=== PATIENT | female | born 2000 | race Caucasian/White ===

== ENCOUNTER 2020-06-19 16:16 | Emergency (ER) | payer BC, SELFPAY ==
[2020-06-19 16:52] VITALS: BP 119/73; PULSE 73; RESP 18; TEMP 36.7; O2SAT 100
--- NOTE | 2020-06-19 17:43 | ED.GENADULT ---
HPI - General Adult General Chief complaint: Skin/Abscess/Foreign Body <Mook Gongora PA-C - Last Filed: 06/19/20 18:25> Stated complaint: wound on forehead <Mook Gongora PA-C - Last Filed: 06/19/20 18:25> Time Seen by Provider: 06/19/20 17:36 <Mook Gongora PA-C - Last Filed: 06/19/20 18:25> Source: patient <Mook Gongora PA-C - Last Filed: 06/19/20 18:25> Mode of arrival: ambulatory <Mook Gongora PA-C - Last Filed: 06/19/20 18:25> Limitations: no limitations <Mook Gongora PA-C - Last Filed: 06/19/20 18:25> History of Present Illness HPI narrative: Patient is a 19-year-old female who presents with wound to the forehead that is been present for the last several days was seen yesterday started on Augmentin noticed no improvement patient denies fever chills nausea vomiting or immunocompromise and is otherwise resting comfortably in the room upon arrival in no distress <Mook Gongora PA-C - Last Filed: 06/19/20 18:25> Related Data Home medications: Home Medications Medication Instructions Recorded Confirmed amoxicillin-pot clavulanate tablet 06/19/20 fluoxetine mg 06/19/20 montelukast mg 06/19/20 omeprazole 06/19/20 ondansetron HCl 06/19/20 promethazine 06/19/20 <Mook Gongora PA-C - Last Filed: 06/19/20 18:25> Allergies/adverse reactions: Allergies Allergy/AdvReac Type Severity Reaction Status Date / Time No Known Allergies Allergy Mild Verified 06/19/20 16:58 <Mook Gongora PA-C - Last Filed: 06/19/20 18:25> Review of Systems Review of Systems: All systems reviewed & are unremarkable except as noted in HPI and below <Mook Gongora PA-C - Last Filed: 06/19/20 18:25> PMFSH Past Medical History Medical History: Medical History (Updated 06/19/20 @ 18:24 by Mook Gongora PA-C) Asthma <Mook Gongora PA-C - Last Filed: 06/19/20 18:25> Social History Social History: Social History (Updated 06/19/20 @ 17:44 by Mook Gongora PA-C) Smoking status: Never smoker Tobacco type: e-cigarettes/vaping <Mook Gongora PA-C - Last Filed: 06/19/20 18:25> Exam Narrative: Exam Narrative: GENERAL: Well-appearing, well-nourished, and in no acute distress. HEAD: Normocephalic, atraumatic. EYES: PERRLA and EOMI. ENT: Nares clear, no rhinorrhea or epistaxis. Mucous membranes moist. EXTREMITIES: Normal range of motion. No edema. SKIN: Warm, dry, consistent with abscess NEURO: No focal deficits. Alert and oriented x3. PSYCH: Normal mood and affect. Patient with 2 cm red tender swollen fluctuant lesion to the left forehead along the hairline <Mook Gongora PA-C - Last Filed: 06/19/20 18:25> Course Course Emergency Course: Patient had I&D of the wound in the emergency department as well as wound culture obtained felt appropriate for outpatient reevaluation given reasons to return felt appropriate for outpatient reevaluation <Mook Gongora PA-C - Last Filed: 06/19/20 18:25> Vital Signs Vital signs: Vital Signs Temperature 36.7 C 06/19/20 16:52 Pulse Rate 73 06/19/20 16:52 Respiratory Rate 18 06/19/20 16:52 Blood Pressure 119/73 06/19/20 16:52 Pulse Oximetry 100 06/19/20 16:52 Temperature 36.7 C 06/19/20 16:52 Pulse Rate 71 06/19/20 18:36 Respiratory Rate 18 06/19/20 18:36 Blood Pressure 129/109 H 06/19/20 18:36 Pulse Oximetry 100 06/19/20 18:36 <Mook Gongora PA-C - Last Filed: 06/19/20 18:25> Vital Signs Temperature 36.7 C 06/19/20 16:52 Pulse Rate 73 06/19/20 16:52 Respiratory Rate 18 06/19/20 16:52 Blood Pressure 119/73 06/19/20 16:52 Pulse Oximetry 100 06/19/20 16:52 Temperature 36.7 C 06/19/20 16:52 Pulse Rate 71 06/19/20 18:36 Respiratory Rate 18 06/19/20 18:36 Blood Pressure 129/109 H 06/19/20 18:36 Pulse Oximetry 100 06/19/20 18:36 <Natasha Salamanca MD - [facility]
[2020-06-19 18:36] VITALS: BP 129/109; PULSE 71; RESP 18; O2SAT 100
== END 2020-06-19 18:38 | disposition home or self-care (01) ==
PROVIDERS: Emergency Provider Emergency Medicine; PCP Physician Assistant
DX: L02.01 Cutaneous abscess of face (principal)
CPT/HCPCS: 10060; 87070; 87075; 87147; 87186; 87205; 99283

== ENCOUNTER → 2020-09-24 11:43 | Outpatient (CLI) | payer BC, SELFPAY ==
--- NOTE | ~2020-09-24 | XR_ITS ---
EXAMINATION: XR knee RT 3V DATE: 09/24/2020 12:05 INDICATION: Right knee pain and popping. TECHNIQUE: 3 views of right knee were obtained. COMPARISON: None. FINDINGS: Bone alignment is normal. No fracture. Joint spaces are well maintained. There is no knee j oint effusion. IMPRESSION: 1. Normal right knee. Reviewed, dictated and finalized at location B. T ROCK TAPER HELPER IMPRESSION: 1. Normal right knee.
== END ==
PROVIDERS: PCP Physician Assistant; Visit Provider Physician Assistant
DX: M25.561 Pain in right knee (principal); G89.29 Other chronic pain
CPT/HCPCS: 73562

== ENCOUNTER 2020-10-04 09:25 | Emergency (ER) | payer BC, SELFPAY ==
[2020-10-04] VITALS (9 sets, daily range): BP systolic 105–147; BP diastolic 61–105; PULSE 63–99; RESP 11–29; TEMP 36.7; O2SAT 98–100
--- NOTE | ~2020-10-04 | XR_ITS ---
EXAMINATION: XR chest 2V DATE: 10/04/2020 10:09 INDICATION: Right-sided chest pain radiating to the back TECHNIQUE: PA and lateral views of the chest were obtained. COMPARISON: Chest radiograph dated 12/18/2008 FINDINGS: The lungs remain clear with no focal airspace opacities, pulmonary edema, pleural effusion or pneumot horax. The cardiomediastinal silhouette is normal. Mild thoracic dextrocurvature. IMPRESSION: 1. No acute cardiopulmonary disease. Reviewed, dictated and finalized at location B. ETIC ASSEMBLER
--- NOTE | 2020-10-04 09:29 | ED.CHESTPAIN ---
HPI - Chest Pain General Chief Complaint: Chest Pain Stated Complaint: right sided chest pain Time Seen by Provider: 10/04/20 09:28 History of Present Illness HPI narrative: 20 yo female w/ h/o BPD presents to the ED for chest pain. Right sided chest pain since last night. Radiates over shoulder and into the upper back. Intermittent. No exacerbating or alleviating factors. Lasts a few minutes each time. No pain at the moment. Tried a heating pad without relief. No cough, SOB, fever, congestion. Related Data Home Medications Medication Instructions Recorded Confirmed omeprazole 06/19/20 cariprazine [Vraylar] mg 10/04/20 Allergies Allergy/AdvReac Type Severity Reaction Status Date / Time No Known Allergies Allergy Mild Verified 10/04/20 10:03 Review of Systems Review of Systems: All systems reviewed & are unremarkable except as noted in HPI and below Constitutional: Constitutional: Denies chills and Denies fever(s) Cardiovascular: Cardiovascular: Reports chest pain and Denies radiating jaw, neck or arm pain Respiratory: Respiratory: Denies chest congestion, Denies cough and Denies dyspnea Gastrointestinal: Gastrointestinal: Denies abdominal pain and Denies nausea Genitourinary: Genitourinary: Denies dysuria Musculoskeletal: Musculoskeletal: Reports back pain Neurologic: Denies dizziness and Denies weakness Psychiatric: Psychiatric: Reports anxiety and Reports depression PMFSH Past Medical History Medical History Asthma Social History Social History Smoking status: Never smoker Tobacco type: e-cigarettes/vaping Gender identity (if verbalized by the patient): Female Exam Const: General: healthy appearing, no acute distress and alert Nutritional Appearance: well nourished Orientation/consciousness: patient oriented x3 HENMT: Head: normal to inspection Neck: Neck: normal visual inspection Chest: Chest palpation & inspection: no tenderness Resp: Effort & Inspection: normal respiratory effort Auscultation: clear to auscultation bilaterally, no rales, no rhonchi and no wheezes Cardio: Jugular venous distension: no JVD Rate: regular rate Rhythm: regular rhythm Heart sounds: no murmurs GI: Inspection: non-distended GI Palp: Yes Soft to palpation and No Tenderness to palpation present (GI) Skin: General skin exam: normal color Neuro: General: patient oriented x3 and moves all extremities Speech: normal speech Extrem: General: no edema Psych: Appearance: well kempt Affect: normal affect Course Vital Signs Vital signs: Vital Signs Temperature 36.7 C 10/04/20 09:45 Pulse Rate 99 10/04/20 09:45 Respiratory Rate 18 10/04/20 09:45 Blood Pressure 147/105 H 10/04/20 09:45 Pulse Oximetry 98 10/04/20 09:45 Temperature 36.7 C 10/04/20 09:45 Pulse Rate 63 10/04/20 11:15 Respiratory Rate 18 10/04/20 11:15 Blood Pressure 119/67 10/04/20 11:15 Pulse Oximetry 100 10/04/20 11:15 MDM - Chest Pain MDM Narrative Medical decision making narrative: Pain seems to be muscular in nature. Likely subclavius given distribution and difficultly of reproducing on exam. Anxiety likely contributing as well. Differential Diagnosis Differential diagnosis: Likely atypical chest pain, costochondritis and other (subclavius strain) Lab Data Attestation: I reviewed the patient's lab results. Result diagrams: 10/04/20 09:53 10/04/20 09:53 Labs: Lab Results 10/04/20 10/04/20 Range/Units 09:53 09:53 WBC 6.3 (4.5-10.0) K/mm3 RBC 4.31 (4.2-5.4) M/mm3 Hgb 12.5 (12.0-15.0) g/dL Hct 38.0 (37.0-47.0) % MCV 88.2 (80-100) fl MCH 29.0 (26-34) pg MCHC 32.9 (32-36) g/dl RDW 13.4 (11.5-14.5) % Plt Count 228 (150-375) k/mm3 MPV 10.9 H (7.4-10.4) fl Immature Gran % (Auto) 0.3 (0-0.5) % Ne
--- NOTE | 2020-10-04 09:49 | ECG_ITS ---
Measurements Intervals Leslie Rate: 82 P: 42 WV: 140 QRS: 33 QRSD: 101 T: 5 QT: 348 QTc: 408 Interpretive Statements SINUS RHYTHM DELAYED PRECORDIAL R/S TRANSITION BORDERLINE ST-T WAVE ABNORMALITY- INFERIOR LEADS BASELINE ARTIFACT- I, II, III, AVR, V4 BORDERLINE ECG Electronically Signed On 10-04-2020 11:42:42 [facility] by Danial Adams D.O.
[2020-10-04 09:58] LABS: Basophils Percent Auto 0.3 % (0.2-1.2); Eosinophils Absolute Auto 0.3 K/mm3 (0-0.3); Eosinophils Percent Auto 4.6 % (0-4.4); Hemoglobin 12.5 g/dL (12.0-15.0); Immature Granulocyte Absolute 0.02 K/mm3 (0.00-0.031); Immature Granulocyte Percent A 0.3 % (0-0.5); Lymphocytes Absolute Auto 2.15 K/mm3 (0.9-3.2); Lymphocytes Percent Auto 34.2 % (18.3-44.2); Mean Corpuscular HGB Conc 32.9 g/dl (32-36); Mean Corpuscular Volume 88.2 fl (80-100); Mean Platelet Volume 10.9 fl (7.4-10.4); Monocytes Absolute Auto 0.5 K/mm3 (0.1-0.6); Monocytes Percent Auto 7.5 % (2.6-8.5); Neutrophils Absolute Auto 3.3 K/mm3 (1.3-6.7); Neutrophils Percent Auto 53.1 % (45.5-73.1); Platelet Count Result 228 k/mm3 (150-375); Red Blood Count 4.31 M/mm3 (4.2-5.4); Red Cell Distribution Width 13.4 % (11.5-14.5); White Blood Count 6.3 K/mm3 (4.5-10.0)
[2020-10-04] MEDS: KETOROLAC 30 MG/ML VIAL (*BKC) IV PUSH (10:05)
[2020-10-04 11:07] LABS: Alanine Aminotransferase 17 U/L (4-35); Alkaline Phosphatase 52 U/L (38-126); Anion Gap 4 mmol/L (8-16); Aspartate Amino Transferase 28 U/L (14-36); Bilirubin,Total 0.4 mg/dL (0.2-1.3); Blood Urea Nitrogen 14 mg/dL (7-17); Calcium 8.9 mg/dL (8.4-10.2); Carbon Dioxide 29 mmol/L (22-30); Chloride 105 mmol/L (98-107); Estimated CRCL calculation 115 ml/min; Estimated Glomerular Filt Rate > 60; Glucose 92 mg/dL (65-105); Potassium 3.7 mmol/L (3.4-5.0); Sodium 138 mmol/L (137-145)
[2020-10-04 11:19] LABS: Troponin I < 0.012 ng/mL (0.000-0.034)
== END 2020-10-04 12:30 | disposition home or self-care (01) ==
PROVIDERS: Emergency Provider Emergency Medicine; Family Provider Pediatrics; PCP Physician Assistant
DX: R07.89 Other chest pain (principal); J45.909 Unspecified asthma, uncomplicated; F17.290 Nicotine dependence, other tobacco product, uncomplicated; R94.31 Abnormal electrocardiogram [ECG] [EKG]
CPT/HCPCS: 36415; 71046; 80053; 84484; 85025; 93005; 96374; 99284; J1885

== ENCOUNTER 2021-02-19 12:33 | Emergency (ER) | payer BC, SELFPAY ==
[2021-02-19 12:47] VITALS: BP 119/70; PULSE 111; RESP 16; TEMP 37.1; O2SAT 99
--- NOTE | 2021-02-19 13:37 | ED.GENADULT ---
HPI - General Adult General Chief complaint: Upper Respiratory Infection Stated complaint: sinus pressure/nasal congesiton Time Seen by Provider: 02/19/21 13:37 Source: patient and RN notes reviewed Mode of arrival: ambulatory Limitations: no limitations History of Present Illness HPI narrative: 20-year-old female presents with complaints of upper respiratory infection, facial and congestion and pressure, and sore throat for 1 day. Payton reports increasing symptoms throughout the night. Claritin and Advil without relief. No facial swelling. Intermittent cough without chest congestion. Nasal congestion and rhinorrhea. ?Sore throat. ?Pain is bilateral. ?Hurts to swallow. ?No high fevers, drooling, neck or throat swelling. ?No voice change. ?No nausea, vomiting, or abdominal pain. ?Tolerating liquids well. Denies dyspnea, difficulty swallowing, jaw pain, dental pain, foreign body sensation, and rash. ?No chest pain or shortness of breath. LMP 2 months ago due to control. Remains active. The patient reports she was diagnosed with COVID-25 August 2020. The patient reports she received 2 [employer] COVID-19 vaccines. The patient reports she is not waiting for the results of a COVID-19lab test.? The patient reports she does not have chills, weakness, or fatigue.? The patient reports she does not have a new or worsening cough. The patient reports she does not have any loss of taste or smell and diarrhea. Denies recent traveling.? Denies concerns for COVID-19 or exposures.? At this time, the patient is not suspected of having COVID-19. ? Some parts of this dictation were generated by voice recognition software and may contain typographical and/or grammatical inaccuracies. Related Data Home Medications Medication Instructions Recorded Confirmed omeprazole 40 mg PO DAILY 06/19/20 02/19/21 cariprazine [Vraylar] 3 mg PO DAILY 10/04/20 02/19/21 norethindrone-e.estradiol-iron 1 tablet PO DAILY 02/19/21 02/19/21 [Blisovi 24 Fe] ondansetron HCl 4 mg PO Q8H PRN 02/19/21 02/19/21 Allergies Allergy/AdvReac Type Severity Reaction Status Date / Time No Known Allergies Allergy Mild Verified 02/19/21 12:54 Review of Systems Review of Systems: Narrative: CONSTITUTIONAL: Denies fever, chills, sweats. EYES: Denies visual changes, redness, discharge. ENT: Complains of rhinorrhea, congestion, facial congestion and pressure, sore throat. Denies otalgia. CARDIOVASCULAR: Denies chest pain, palpitations, edema. RESPIRATORY: Denies dyspnea, wheezing. Complaints of dry cough. GASTROINTESTINAL: Denies abdominal pain, nausea, vomiting, diarrhea. GENITOURINARY: Denies dysuria, hematuria, abnormal discharge SKIN: Denies rash or itching. MUSCULOSKELETAL: Denies acute back pain, joint pain, or myalgia. NEUROLOGIC: Denies numbness or focal weakness. PSYCHIATRIC: Denies anxiety or depression. All other systems reviewed & are unremarkable except as noted in HPI and below. [facility] Past Medical History Medical History (Updated 02/20/21 @ 00:01 by Ad Whipple) Asthma COVID-19 Hypoglycemia Migraine Nausea Intermittent Surgical History Surgical History (Updated 02/19/21 @ 14:00 by REJI Lu) History of esophagogastroduodenoscopy (EGD) History of tonsillectomy Family History Family History (Updated 02/19/21 @ 13:54 by REJI Lu) Father , Suicide Depression Mother Hypertension Social History Social History (Updated 02/19/21 @ 13:55 by REJI Lu) Smoking status: Current every day smoker Tobacco type: e-cigarettes/vaping Second hand tobacco smoke exposure: No Alcohol intake: current Substance use: never Substance use type: does not use Living arrangements: with family Occupation/Education: occupation Gender identity (if verbalized by the patient): Female Sexual Orientation (if Verbalized by the Patient): Straight or Heterosexual Comments At time o
== END 2021-02-19 14:08 | disposition home or self-care (01) ==
PROVIDERS: Emergency Provider Nurse Practitioner Family; PCP Physician Assistant
DX: J06.9 Acute upper respiratory infection, unspecified (principal); F17.200 Nicotine dependence, unspecified, uncomplicated; J45.909 Unspecified asthma, uncomplicated; Z86.16 Personal history of COVID-19
CPT/HCPCS: 99213; G0463

== ENCOUNTER → 2022-03-05 08:34 | Outpatient (CLI) | payer BC, SELFPAY ==
--- NOTE | ~2022-03-05 | XR_ITS ---
EXAMINATION: XR foot LT min 3V DATE: 03/05/2022 08:51 INDICATION: Left foot pain TECHNIQUE: Dorsoplantar, lateral, and 2 oblique views of the left foot were obtained. COMPARISON: None. FINDINGS: There is no fracture, dislocation, or subluxation. The bones, soft tissues, and joint space s are normal. IMPRESSION: 1. No acute osseous abnormality. Reviewed, dictated and finalized at location A.
== END ==
PROVIDERS: PCP Physician Assistant; Visit Provider Physician Assistant
DX: M79.672 Pain in left foot (principal)
CPT/HCPCS: 73630

== ENCOUNTER 2022-03-12 16:15 | Emergency (ER) | payer BC, SELFPAY | END 2022-03-12 16:16 | disposition left against medical advice (07) | PROVIDERS: Emergency Provider Registered Nurse | DX: Z53.21 Procedure and treatment not carried out due to patient leaving prior to being seen by health care provider (principal) | CPT/HCPCS: 99199 ==

== ENCOUNTER 2024-03-16 11:30 | Outpatient (CLI) | payer OTHER, SELFPAY ==
--- NOTE | ~2024-03-16 | XR_ITS ---
AP view of the pelvis and AP and lateral views of the left hip Clinical history: Pain Findings: No acute fracture or dislocation is seen. Osseous alignment is anatomic. Bilateral hip and SI joint spaces are preserved. Soft tissues are unremarkable. Impression: No significant abnormality is seen. Reviewed, dictated and finalized at location . Impression: No significant abnormality is seen.
== END 2024-03-16 11:31 ==
PROVIDERS: PCP Nurse Practitioner Family; Visit Provider Nurse Practitioner Family
DX: M25.552 Pain in left hip (principal)
CPT/HCPCS: 73502

== ENCOUNTER 2025-02-02 17:39 | Emergency (ER) | payer BC, SELFPAY ==
--- NOTE | ~2025-02-02 | XR_ITS ---
XR ribs RT 2V Ordering provider: Marcus Smith APRN History: . right anterior rib pain- pain with cough, no injury 1 week . Comparison: None. FINDINGS: BONES: No acute right rib fracture or fracture of the visualized osseous structures. LUNGS: No effusions or infiltrates. No pneumothorax. SOFT TISSUES: Normal. IMPRESSION: No right rib fracture. Reviewed, dictated and finalized at location A. IMPRESSION: No right rib fracture.
[2025-02-02 17:45] VITALS: BP 130/82; PULSE 81; RESP 18; TEMP 36.8; O2SAT 100
--- NOTE | 2025-02-02 17:50 | ED.URI ---
HPI - URI/Sore Throat General Chief Complaint: Upper Respiratory Infection Stated Complaint: Rib Pain Time Seen by Provider: 02/02/25 17:50 Source: patient Mode of arrival: ambulatory Limitations: no limitations History of Present Illness HPI Narrative: Payton is a 24-year-old female patient presenting to the clinic today with complaints of right sided anterior rib pain x 1 week. She denies any known injury but states she is a very violent cough for and is concerned that she may have fractured or bruised a rib. States she is having pain to the right anterior lower rib chest below the right breast. Pain with coughing, taking deep breaths, and movement. MD elicited complaint: sore throat and nasal congestion Related Data Home Medications ?Medication ?Instructions ?Recorded ?Confirmed ?Last Taken ?Type nortriptyline 10 mg capsule mg 02/02/25 Unknown History Allergies Allergy/AdvReac Type Severity Reaction Status Date / Time No Known Allergies Allergy Mild Verified 02/02/25 17:46 Review of Systems Review of Systems: Pertinent positives per HPI. Patient denies any fever, chills, rash, headache, visual changes, dizziness,shortness of breath, chest pain, palpitations, nausea, vomiting, diarrhea, constipation, abdominal pain, or any urinary issues. [facility] Past Medical History Medical History Nausea Intermittent Migraine COVID-19 Hypoglycemia Asthma Surgical History Surgical History History of esophagogastroduodenoscopy (EGD) History of tonsillectomy Family History Family History Father , Suicide Depression Mother Hypertension Social History Social History Smoking status: Current every day smoker Tobacco type: e-cigarettes/vaping Second hand tobacco smoke exposure: No Alcohol intake: current Substance use: never Substance use type: does not use Do You Feel Safe in your Home?: Yes Lack of Transportation: No Lack of Food: Never True Current Housing: I Have Housing Concerned About Future Housing: No Difficulty Paying Gas/Electric Bills: No Difficulty Paying for Meds: No Currently Unemployed: No Education: High School Diploma/GED Difficulty w/ Childcare or Family Care: No Living arrangements: with family Occupation/Education: occupation Gender identity (if verbalized by the patient): Female Sexual Orientation (if Verbalized by the Patient): Straight or Heterosexual Comments At the time of my signature, I reviewed and agree with the nursing past medical, surgical, social, and family history. There is no relevant family history pertinent to the patient complaint. Exam Narrative: General: Well-developed, well nourished, in no apparent distress Head: Normocephalic, atraumatic Eyes: Pupils equally round and reactive to light bilaterally, EOM intact, sclera and conjunctive clear, no discharge, lids normal Ears: TMs intact and clear, ear canals clear, no drainage, grossly hearing normal. Nose: Nares patent, no discharge, no inflammation, no sinus tenderness. Mouth: Oral pharynx without lesions or masses, good dentition, MMM. Neck: Supple, trachea midline, no enlargement of anterior or posterior cervical nodes, no thyroid masses or goiter palpable. Chest wall: Right anterior lower rib pain, tender to palpation, no bruising or swelling noted. Even rise and fall of the chest wall with respirations Cardio: Regular rate and rhythm, s1 and s2 normal, no murmur appreciated. Resp: Clear to auscultation bilaterally, no rhonchi, rales, wheezing or rubs Course Course Emergency Course: Portions of this record may have been created with voice recognition software. Level of Care: Express Care Visit Vital Signs Vital signs: Vital Signs Temperature 36.8 C 02/02/25 17:45 Pulse Rate 81 02/02/25 17:45 Respiratory Rate 18 02/02/25 17:45 Blood Pressure 130/82 02/02/25 17:45 Pulse Oximetry 100 02/02/25 17:45 Oxygen Delivery Room Air 02/02/25 17:45 Temperature 36.8 C 02/02/25 17:45 Pulse Rate 81 02/02/25 17:45 Respiratory Rate 18 02/02/25 17:45 Blood Pressure 130/82 02/02/25 17:45 Pulse Oximetry 100 02/02/25 17:45 Oxygen Delivery Room Air 02/02/25 17:45 Vital signs reviewed MDM - URI/Sore Throat MDM Narrative Medical decision making narrative: At the time of visit patient is resting comfortably on the exam table. Patient appears to be nontoxic. Diagnostics: Right rib x-ray was performed and was negative for any fracture, pneumonia, or pneumothorax. Plan: I suspect patient has right rib pain/costochondritis. Recommend taking ibuprofen 3 times daily. Splinting the area when coughing and taking deep breaths. Supportive measures were discussed with the patient and they voiced understanding discharge instructions and agrees to treatment plan. Return precautions reviewed Differential Diagnosis Differential diagnosis: Likely upper respiratory infection, otitis media, sinusitis, viral infection, bronchitis, influenza, pharyngitis and other (COVID) Imaging Data Radiologist's impression: ITS Impressions Ribs X-Ray 02/02/25 18:47 IMPRESSION: No right rib fracture. Discharge Plan Discharge Clinical Impression: Rib pain on right side Patient Disposition: Home Condition: Stable Instructions: Antibiotic Form, Costochondritis (ED) Additional Instructions: X-ray shows no sign of fracture or malalignment of the right ribs. Increase fluids and stay well hydrated Recommend taking 600-800 mg of ibuprofen every 8 hours as needed for pain May use heat or ice to the affected area May use blue emu, lidocaine patches, or asper cream to affected area- do not apply heat or ice directly over cream- can cause burn. Follow up with your PCP in 3-5 days if symptom persist. Patient Language: Spanish Prescriptions: No Action nortriptyline 10 mg capsule diclofenac potassium 50 mg tablet 50 mg PO BID PRN (Reason: pain) Qty: 30 0RF txmvtlusof-vgylwtlzpliih-jxao 50-325-40 mg tablet 2 tablet PO Q6H PRN (Reason: headache) Qty: 40 2RF aripiprazole 2 mg tablet 2 mg PO QHS Qty: 90 0RF escitalopram oxalate 20 mg tablet 20 mg PO DAILY Qty: 90 0RF pantoprazole 40 mg tablet,delayed release (DR/EC) 40 mg PO QAM Qty: 90 1RF ondansetron HCl 4 mg tablet 4 mg PO Q8H PRN (Reason: Nausea) Qty: 20 0RF phentermine 37.5 mg capsule 37.5 mg PO DAILY Qty: 30 0RF Rx Instructions: must administer 30 minutes before or 1-2 hours after breakfast Follow-up/Referrals: Pamela Mayes, TRAVEL ASSISTANT [Primary Care Provider] - Time of Disposition: 18:59 Quality NIHSS Nursing Documentation ED NIHSS nursing documentation: reviewed/agree
== END 2025-02-02 19:03 | disposition home or self-care (01) ==
PROVIDERS: Emergency Provider Nurse Practitioner Family; PCP Nurse Practitioner Family
DX: R07.81 Pleurodynia (principal); F17.290 Nicotine dependence, other tobacco product, uncomplicated; J45.909 Unspecified asthma, uncomplicated; Z86.16 Personal history of COVID-19
CPT/HCPCS: 71100; 99213; G0463

== ENCOUNTER 2025-02-14 13:48 | Outpatient (CLI) | payer BC, SELFPAY ==
--- NOTE | ~2025-02-14 | MR_ITS ---
MRI of the brain Clinical History: Migraine Technique: Axial and sagittal T1-weighted images were acquired. These were followed by axial T2-weigh cecilio, diffusion weighted, gradient, and FLAIR images. Findings: No abnormal signal seen in the brain parenchyma. No acute infarct, intracranial hemorrhage, or mass lesion seen. Ventricles and subarachnoid spaces are unremarkable. Orbits are unremarkable. There is left sphenoid sinus disease. Remaining paranasal sinuses and mastoid air cells are clear. Major intracranial flow v oids appear intact. Sagittal midline structures are intact. IMPRESSION: Left sphenoid sinus disease, otherwise unremarkable exam. Reviewed, dictated and finalized at location .
== END 2025-02-14 13:49 | disposition home or self-care (01) ==
PROVIDERS: PCP Nurse Practitioner Family; Visit Provider Nurse Practitioner Family
DX: J32.3 Chronic sphenoidal sinusitis (principal); G43.909 Migraine, unspecified, not intractable, without status migrainosus
CPT/HCPCS: 70551